=== PATIENT | female | born 1955 | race Caucasian/White ===

== ENCOUNTER → 2023-10-16 11:15 | Outpatient (BNVA) | payer MEDICARE, SELFPAY | PROVIDERS: Family Provider Family Medicine; Visit Provider Family Medicine Adult Medicine | DX: R03.0 Elevated blood-pressure reading, without diagnosis of hypertension (principal); Z00.00 Encounter for general adult medical examination without abnormal findings; F32.A Depression, unspecified; F17.200 Nicotine dependence, unspecified, uncomplicated; J43.9 Emphysema, unspecified; Z68.30 Body mass index [BMI] 30.0-30.9, adult; F41.9 Anxiety disorder, unspecified | CPT/HCPCS: 80061; 84443; 85025 ==

== ENCOUNTER 2023-11-06 10:45 | Outpatient (CLI) | payer MEDICARE, SELFPAY ==
--- NOTE | 2023-11-06 10:51 | XRR_ITS ---
PROCEDURE INFORMATION: Exam: XR Chest Exam date and time: 11/06/2023 11:13 AM Age: 68 years old Clinical indication: Shortness of breath TECHNIQUE: Imaging protocol: Radiologic exam of the chest. Views: 2 views. COMPARISON: No relevant prior studies available. FINDINGS: Lungs: Unremarkable. No consolidation. Pleural spaces: Unremarkable. No pleural effusion. No pneumothorax. Heart/Mediastinum: Unremarkable. No cardiomegaly. Bones/joints: Mild scoliosis with mild multilevel spondylosis. Pectus excavatum. XR/XR chest 2V* [id number] IMPRESSION: No acute disease.
== END 2023-11-06 10:46 | disposition home or self-care (01) ==
LOC: RAD 10:47
PROVIDERS: Family Provider Family Medicine; PCP Family Medicine Adult Medicine; Visit Provider Nurse Practitioner Family
DX: R06.02 Shortness of breath (principal)
CPT/HCPCS: 71046

== ENCOUNTER → 2024-09-20 08:28 | Outpatient (BNVA) | payer MEDICARE, SELFPAY | PROVIDERS: Family Provider Family Medicine; PCP Family Medicine; Visit Provider Family Medicine | DX: D75.1 Secondary polycythemia (principal); Z13.6 Encounter for screening for cardiovascular disorders; F41.9 Anxiety disorder, unspecified; F32.A Depression, unspecified; J43.1 Panlobular emphysema; E03.9 Hypothyroidism, unspecified; F32.1 Major depressive disorder, single episode, moderate; Z68.30 Body mass index [BMI] 30.0-30.9, adult; F17.200 Nicotine dependence, unspecified, uncomplicated; Z71.6 Tobacco abuse counseling | CPT/HCPCS: 80053; 80061; 84439; 84443; 85025 ==

== ENCOUNTER 2024-10-05 08:44 | Outpatient (CLI) | payer MEDICARE, SELFPAY ==
--- NOTE | 2024-10-05 09:00 | MM_ITS ---
WS: [id number] BILATERAL 3D TOMOSYNTHESIS DIGITAL SCREENING MAMMOGRAPHY WITH CAD CLINICAL INFORMATION: screening HISTORY: Screening mammogram. No current complaints. Did not return for additional views in 2018 COMPARISON: 2018 TECHNIQUE: Bilateral CC and MLO views. FINDINGS: Scattered fibroglandular densities bilaterally. No suspicious focal mass, asymmetry, calcifications, or architectural distortion. No evidence of malignancy. Previously described ovoid nodular density subareolar RIGHT breast are smaller today which is reassuring. MM/MM [facility] tomosynthesis [id number] IMPRESSION: DENSITY: There are scattered areas of fibroglandular density. BI-RADS: 2 - Benign. FOLLOW UP: 1 Year Follow-up Recommend return to annual screening mammography.
== END 2024-10-05 08:45 | disposition home or self-care (01) ==
LOC: RAD 08:45
PROVIDERS: Family Provider Family Medicine; PCP Family Medicine; Visit Provider Family Medicine
DX: Z12.31 Encounter for screening mammogram for malignant neoplasm of breast (principal); R92.323 Mammographic fibroglandular density, bilateral breasts; N63.10 Unspecified lump in the right breast, unspecified quadrant
CPT/HCPCS: 77063; 77067